=== PATIENT | female | born 1985 | race Hispanic/Latino ===

== ENCOUNTER 2018-09-11 16:56 | Inpatient (IN) | payer OTHER ==
[~2018-09-11] VITALS: Ht 157.5 cm; Wt 68.5 kg
[2018-09-11] MEDS ORDERED: CEFAZOLIN SODIUM 1 GM VIAL ONE (17:46)
[2018-09-11] MEDS ORDERED: SODIUM CHLORIDE 0.9% 50 ML IV ONE (17:47)
[2018-09-11 18:05] LABS: BASOPHILS % (AUTO) 0.4 % (0.0-5.0); EOSINOPHILS % (AUTO) 0.6 % (0.0-8.0); HEMATOCRIT 33.9 % (36-48); LYMPHOCYTES % (AUTO) 17.7 % (21.0-51.0); MEAN CORPUSCULAR HEMOGLOBIN 29.9 pg (27.0-33.0); MEAN CORPUSCULAR HGB CONC 32.5 g/dL (32.0-36.0); MEAN CORPUSCULAR VOLUME 91.7 fL (79-99); MONOCYTES % (AUTO) 4.1 % (3.0-13.0); NEUTROPHILS % (AUTO) 77.2 % (40.0-77.0); NUCLEATED RED BLOOD CELLS 0.1 % (0.0-0.19); PLATELET COUNT (AUTO) 476 K/uL (130-400); RED BLOOD CELL COUNT(AUTO) 3.69 MIL/uL (4.00-5.50); RED CELL DISTRIBUTION WIDTH 14.4 % (11.0-15.5); WHITE BLOOD COUNT (AUTO) 11.3 K/uL (4.8-10.8)
[2018-09-11 18:18] LABS: CREATININE 0.8 mg/dL (0.5-1.5); POTASSIUM 3.3 mmol/L (3.5-5.1)
[2018-09-11 18:20] LABS: INR 0.98 (0.85-1.15); PARTIAL THROMBOPLASTIN TIME 30.1 SEC (26.3-35.5); PROTHROMBIN TIME 10.3 SEC (9.6-11.6)
[2018-09-11 18:23] LABS: ALBUMIN 4.4 g/dL (3.5-5.0); BILIRUBIN,TOTAL 0.4 mg/dL (0.2-1.0); TOTAL PROTEIN, SERUM 8.4 g/dL (6.0-8.3)
--- NOTE | 2018-09-11 21:43 | NUR ---
Patient received from ED: Patient came in via wheelchair accompanied by ED Nurse with saline lock on her right antecubital patent, Left hand with dressing/Jeremias bandage intact. Patient and oriented to her room, call light given. Plan of care discussed with patient verbalizes understanding.
[2018-09-11 22:42] VITALS: BP 139/91
[2018-09-11] MEDS ORDERED: ACETAMINOPHEN-CODEINE 300/30MG TAB PO PRN (22:45)
[2018-09-11] MEDS ORDERED: MORPHINE SULFATE 2 MG/ML 1ML SYG IVP PRN (22:45)
[2018-09-12] VITALS (22 sets, daily range): BP systolic 108–136; BP diastolic 70–95
[2018-09-12] MEDS: CEFAZOLIN SODIUM 1 GM VIAL IVP SCH ×3 (02:24→18:13)
[2018-09-12] MEDS ORDERED: EMTR1TAB12 PO (03:02)
[2018-09-12] MEDS: ACETAMINOPHEN-CODEINE 300/30MG TAB PO PRN (03:43)
--- NOTE | 2018-09-12 10:35 | NUR ---
LACERATION PICTURES TAKEN OF L HAND LACERATION THAT WAS REPAIRED IN E.D. LAST NIGHT BEFORE PT SCHEDULED TO GO TO SURGERY FOR REPAIR; PT IS ABLE TO MOVE MOST DIGITS EASILY, THE MIDDLE FINGER HAS VERY LIMITED MOBILITY AND HURTS MOST WITH MOVEMENT, ALL 5 DIGITS HAVE CAP REFILL <2 SEC.
--- NOTE | 2018-09-12 11:02 | NUR ---
TO HOLDING PT TRANSPORTED TO HOLDING AREA, VIA BED, ACCOMPANIED BY AMINATA PIKE AND STEVENSON ELLINGTON; NO C/O PAIN, IV SALINE LOCKED, AAO X3
[2018-09-12] MEDS ORDERED: LACTATED RINGERS 1000ML 1,000 ML IV ONE (11:04)
[2018-09-12] MEDS ORDERED: PROPOFOL 10 MG/ML 20ML VIAL IV ONE (11:20)
[2018-09-12] MEDS ORDERED: LIDOCAINE PF 2% 5ML ABBOJECT ONE (11:20)
[2018-09-12] MEDS ORDERED: FENTANYL CITRATE PF 50 MCG/1 ML 2ML VIAL ONE ×2 (11:20→13:32)
[2018-09-12] MEDS ORDERED: NEOMY SULF/POLYMYXIN B SULFATE 1 ML AMPUL IR ONE ×2 (12:39→12:40)
[2018-09-12] MEDS ORDERED: ONDANSETRON HCL 4 MG/2 ML VIAL ONE (12:58)
[2018-09-12] MEDS ORDERED: KETOROLAC TROMETHAMINE 30MG/ML ONE (13:25)
[2018-09-12] MEDS ORDERED: MEPERIDINE-PF 25 MG/ML SYG ONE (13:25)
--- NOTE | 2018-09-12 14:22 | NUR ---
ROOM 123 PT RETURNED TO ROOM 123, AAO X3, NO C/O PAIN, IV, 20g TO RAC, PATENT AND INFUSING LR; PT'S LEFT ARM IN SLING, LEFT HAND IS SPLINTED AND COVERED WITH DEONTE WRAP, SPLINT IS SUTURED ONTO WRAP, DRY AND INTACT; PT HAS SENSATION TO ALL 5 DIGITS, HAS CAPILLARY REFILL OF <2 SEC TO EACH OF 5 DIGITS, WARM TO TOUCH; POC DISCUSSED WITH PT AND SPOUSE, PT VERBALIZED UNDERSTANDING
--- NOTE | 2018-09-12 16:38 | NUR ---
DC PLAN VISITED WITH PATIENT. PATIENT LIVES WITH SPOUSE. INDEPENDENT ABLE TO PERFORM ADL'S. PATIENT HAS NO SERVICES OR DME'S. FEELS SAFE TO RETURN HOME. Addendum: 09/12/18 at 1640 by JAYCEE TALAVERA RN CM Amended: Links added.
[2018-09-13 01:24] VITALS: BP 113/63
[2018-09-13] MEDS: CEFAZOLIN SODIUM 1 GM VIAL IVP SCH ×2 (02:01→09:46)
[2018-09-13] MEDS: ACETAMINOPHEN-CODEINE 300/30MG TAB PO PRN (02:15)
[2018-09-13 05:39] VITALS: BP 107/69
[2018-09-13 08:15] VITALS: BP 110/51
[2018-09-13 11:41] VITALS: BP 125/79
--- NOTE | 2018-09-13 14:00 | NUR ---
DISCHARGE PT STABLE, NO PAIN, NO COMPLAINTS; PT LEFT UNIT, VIA WHEELCHAIR, ACCOMPANIED BY RN AND FAMILY MEMBERS CARRYING ALL PERSONAL BELONGINGS, INSTRUCTIONS, AND PRESCRIPTION; PT LEFT FACILITY IN PERSONAL VEHICLE
== END 2018-09-13 14:00 | disposition home or self-care (01) | DRG 581 ==
LOC: EDH 16:56 → EDHIP 16:57 → WSH 21:40
PROVIDERS: ADMIT Surgery Plastic and Reconstructive Surgery; ATTEND Surgery Plastic and Reconstructive Surgery
PROC: 0LQ80ZZ Repair Left Hand Tendon, Open Approach (ICD-10-PCS; principal; 2018-09-12 11:56)
DX: S61.213A Laceration without foreign body of left middle finger without damage to nail, initial encounter (principal); W25.XXXA Contact with sharp glass, initial encounter; Y93.89 Activity, other specified; Y92.89 Other specified places as the place of occurrence of the external cause; Y99.8 Other external cause status
CPT/HCPCS: 36415; 73130; 80053; 81025; 85025; 85610; 85730; A4218; A4565; G0378; J0690; J1885; J2001; J2175; J2405; J2704; J3010; J3490; J7030; J7120